=== PATIENT | male | born 1965 | race Caucasian/White ===

== ENCOUNTER → 2021-12-31 | Day surgery (SDC) | payer OTHER ==
[~2021-12-31] VITALS: Ht 180.3 cm; Wt 90.7 kg
[~2021-12-31] MED LIST: ASPIRIN EC81 MG PO; JARDIANCE10 MG PO; NORCO 5-325 TA1 EACH PO; OZEMPIC1 MG/0.71 SC; SPIRONOLACTONE25 M1 PO; TESTOSTERONE75 GM TOP; VALSARTAN160 MG PO; VITAMIN D325 MC2 PO
[2021-12-31 10:06] LABS: HCT 51.5 % (42.0-52.0); HGB 17.8 g/dl (13.2-18.0); MCH 30.2 pg (25.0-31.0); MCHC 34.6 g/dL (32.0-36.0); MCV 87.3 fL (78.0-100.0); MPV 10.1 fL (6.0-9.5); RBC 5.9 M/uL (4.70-6.00); RDW 12.9 % (11.5-14.0); WBC 6.8 K/uL (4.0-10.5)
[2021-12-31 10:32] LABS: ALBUMIN 4.1 g/dL (3.4-5.0); BILIRUBIN - TOTAL 0.7 mg/dL (0.2-1.0); BUN/CREAT RATIO (CALC) 13.6 RATIO; CREATININE 1.18 mg/dL (0.67-1.17); GLOBULIN (CALCULATION) 2.4 g/dL; POTASSIUM 4.2 mmol/L (3.5-5.1); TOTAL PROTEIN 6.5 g/dL (6.4-8.2)
== END | disposition home or self-care (01) ==
LOC: FAS 09:20
PROVIDERS: Surgery
DX: K64.1 Second degree hemorrhoids (principal); K64.4 Residual hemorrhoidal skin tags; I10 Essential (primary) hypertension; G43.909 Migraine, unspecified, not intractable, without status migrainosus
CPT/HCPCS: 36415; 80053; J1100; J2250; J2704; J7120